=== PATIENT | male | born 2005 | race African-American/Black ===

== ENCOUNTER 2025-01-04 18:57 | Inpatient (IN) | payer OTHER ==
[2025-01-04] MEDS ORDERED: Calcium Carbonate 500 MG ChewTAB PO PRN (20:37)
[2025-01-04] MEDS ORDERED: Ondansetron PF 4 MG/2 ML Vial IVP PRN (20:37)
[2025-01-04] MEDS ORDERED: Electrolyte Replacement Protocol 1 EACH FS SCH (20:45)
[2025-01-04] MEDS: Ibuprofen 800 MG TAB PO PRN (21:36)
[2025-01-04 21:49] VITALS: BMI 27.7
[2025-01-04 21:52] LABS: Troponin I 4.652 ng/mL (< 0.028)
[2025-01-04] MEDS: Enoxaparin 100 MG (1 mL) SYRINGE SC SCH (22:42)
[2025-01-05 01:58] LABS: Troponin I 4.726 ng/mL (< 0.028)
[2025-01-05 05:10] LABS: Hematocrit 43.0 % (42.0-52.0); Hemoglobin 14.1 g/dL (14.0-18.0); Mean Corpuscular Hemoglobin 28.4 pg (27.0-31.0); Mean Corpuscular Volume 86.7 fL (78.0-98.0); Platelet Count 257 10x3/uL (130-400); Red Blood Cell (RBC) Count 4.96 mill/uL (4.70-6.10); White Blood Cell (WBC) Count 5.07 10x3/uL (4.8-10.8)
[2025-01-05 05:25] LABS: ALT (SGPT) 31 U/L (Less than 45); AST (SGOT) 50 U/L (11-34); Albumin 3.2 g/dL (3.1-4.5); Alkaline Phosphatase 63 U/L (40-110); Anion Gap 13 mmol/L (10-20); BUN (Urea Nitrogen) 5 mg/dL (8.9-20.6); Bilirubin, Total 0.9 mg/dL (0.3-1.2); Calc. Creatinine Clearance 150 mL/min (70-130); Calcium 8.8 mg/dL (7.8-10.44); Carbon Dioxide 28 mmol/L (22-29); Chloride 104 mmol/L (98-107); Globulin 3.8 g/dL (2.4-3.5); Glucose 92 mg/dL (70-105); Potassium 4.6 mmol/L (3.5-5.1); Sodium 140 mmol/L (136-145)
[2025-01-05 05:37] LABS: Anisocytosis SLIGHT = 6-15 cells HPF (0-5); Platelet Adequacy Comment Platelets Normal; Polychromasia SLIGHT = 2-3 cells HPF (0-2)
[2025-01-05] MEDS: Aspirin Chewable 81 MG TAB PO SCH (08:53)
[2025-01-05] MEDS: Enoxaparin 100 MG (1 mL) SYRINGE SC SCH (14:11)
[2025-01-05] MEDS: Colchicine 0.6 MG TAB PO SCH (21:05)
[2025-01-06] MEDS: Acetaminophen 325 MG TAB PO PRN (08:35)
[2025-01-06 16:44] VITALS: BP 117/69; TEMP 98
== END 2025-01-06 18:15 | disposition home or self-care (01) | DRG 313 ==
LOC: OBS 18:57 → OBSVTOIN 18:57 → INTOOBSV 18:57
PROVIDERS: ADMIT Hospitalist; ATTEND Hospitalist
DX: R07.89 Other chest pain (principal); I31.9 Disease of pericardium, unspecified; Z79.82 Long term (current) use of aspirin; Z79.899 Other long term (current) drug therapy; Z87.891 Personal history of nicotine dependence; F12.10 Cannabis abuse, uncomplicated; R00.1 Bradycardia, unspecified
CPT/HCPCS: 36415; 80053; 85025; 93306; 96372; G0378; J1650

== ENCOUNTER 2025-03-10 07:34 | Emergency (ER) | payer OTHER | END 2025-03-10 08:42 | disposition home or self-care (01) | LOC: ERS 07:34 | DX: B34.9 Viral infection, unspecified (principal) | CPT/HCPCS: 87428; 99283 ==